=== PATIENT | male | born 1960 | race African-American/Black ===

== ENCOUNTER 2020-03-01 07:30 | Day surgery (SDC) | payer OTHER ==
[~2020-03-01] VITALS: Ht 182.9 cm; Wt 93.2 kg
[2020-03-01 08:01] VITALS: BP 150/92
[2020-03-01 14:35] VITALS: BP 153/83
== END 2020-03-01 14:15 | disposition home or self-care (01) ==
LOC: GI 07:30 → OR 12:00 → GI 14:15
PROVIDERS: ATTEND Internal Medicine Gastroenterology
DX: R19.5 Other fecal abnormalities (principal); K57.30 Diverticulosis of large intestine without perforation or abscess without bleeding; J45.909 Unspecified asthma, uncomplicated; F33.41 Major depressive disorder, recurrent, in partial remission
CPT/HCPCS: 45378; J1200; J1610; J2250; J2310; J3010; J3490